=== PATIENT | male | born 1965 | race Caucasian/White ===

== ENCOUNTER 2019-04-05 14:38 | Inpatient (IN) | payer MEDICAID ==
[~2019-04-05] VITALS: Ht 185.4 cm; Wt 105.1 kg
[~2019-04-05 14:38] MED LIST: FLO0.4C PO; HYDR-4353 PO
[2019-04-05] MEDS ORDERED: magnesium hydroxide 30ml (MOM) UD suspension PO PRN (15:50)
[2019-04-05] MEDS ORDERED: LORazepam 1 MG tablet PO PRN (15:50)
[2019-04-05] MEDS ORDERED: NICOTINE POLACRILEX 2 MG LOZENGE BC PRN (15:50)
[2019-04-05] MEDS ORDERED: loperamide 2mg capsule PO PRN (15:50)
[2019-04-05] MEDS ORDERED: acetaminophen 325mg tablet PO PRN ×2 (15:50)
[2019-04-05] MEDS ORDERED: hydrOXYzine 25 MG tablet PO PRN (15:50)
[2019-04-05] MEDS ORDERED: mag hydrox/Alum hydrox/simeth 30ml oral suspension PO PRN (15:50)
[2019-04-05] MEDS ORDERED: NO HOME MEDS (15:54)
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
[2019-04-05 17:45] VITALS: BP 124/86
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
[2019-04-05 19:33] VITALS: BP 115/70
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
[2019-04-06] MEDS: nicotine 21mg patch - 24 hr TD SCH (07:55)
[2019-04-06 08:12] VITALS: BP 124/84
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
[2019-04-06 19:49] VITALS: BP 139/80
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
[2019-04-07 08:00] VITALS: BP 119/77
[2019-04-07] MEDS: nicotine 21mg patch - 24 hr TD SCH (08:00)
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
[2019-04-07 19:59] VITALS: BP 135/87
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
[2019-04-08 06:54] LABS: CHOL/HDL RATIO 2.9 (0.00-4.99); CHOLESTEROL 118 MG/DL (0-200); HDL CHOLESTEROL 41 MG/DL (35-60); LDL CHOLESTEROL 65 MG/DL (50-100); TRIGLYCERIDES 91 MG/DL (20-135)
[2019-04-08 08:00] VITALS: BP 125/71
[2019-04-08] MEDS: nicotine 21mg patch - 24 hr TD SCH (08:00)
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
[2019-04-08 20:00] VITALS: BP 127/82
[2019-04-08] MEDS: risperiDONE 0.5mg tablet PO SCH (20:49)
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
[2019-04-09] MEDS: risperiDONE 0.5mg tablet PO SCH ×2 (07:45→20:14)
[2019-04-09] MEDS: nicotine 21mg patch - 24 hr TD SCH (07:45)
[2019-04-09 08:00] VITALS: BP 114/75
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
--- NOTE | 2019-04-09 15:02 | NUR ---
DISCHARGE PLANNING Ct reported he plans on following up with [facility] upon discharge. Asked Lionel to run his insurance and it came up as [employer] but showed he may have [facility] benefits. Called [place] (ph# [phone]) and was informed Ct is [facility]he the [facility], is not assigned a provider, however, has seen a doctor in the past and is able to follow up with one. Asked to make Ct a follow up appt. Staff reported he will send a note to the "care team" regarding follow up. Staff suggested commercial lines underwriter call to follow up. Informed him that Ct will be discharging soon and will be in need of follow up care. Recreation Therapist will call back tomorrow. MICAELA Hussein
[2019-04-09 20:38] VITALS: BP 104/67
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
--- NOTE | 2019-04-10 07:50 | NUR ---
DISCHARGE PLANNING Left message for Jennifer from [place] (ph# [phone]) who had returned rewriter's call yesterday regarding a follow up appt for Ct. MICAELA Hussein
[2019-04-10 08:00] VITALS: BP 119/81
[2019-04-10] MEDS: nicotine 21mg patch - 24 hr TD SCH (08:00)
[2019-04-10] MEDS: risperiDONE 0.5mg tablet PO SCH (08:17)
--- NOTE | 2019-04-10 11:43 | NUR ---
Initial: Pt admitted for psychosis. Pt eating well, PO intake averaging 75-100% with a few refusals, meeting nutrient needs. [facility] 04/09. No nutrition diagnosis at this time. Will continue to monitor. Rec: 1. Continue regular diet 2. Bowel care as needed 3. Weekly weights Addendum: 04/10/19 at 1143 by Wing Peggy SHELL Amended: Links added. Addendum: 04/10/19 at [address] agree with director internal communications note
[2019-04-10] MEDS ORDERED: HYDR-3686 PO (14:33)
[2019-04-10] MEDS ORDERED: RISP0.5T3 PO (14:33)
[2019-04-10] MEDS ORDERED: NICO-687 TD (14:33)
--- NOTE | 2019-04-10 17:25 | NUR ---
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 Pt has been improving since admission and is in no acute physical or emotional distress. Pt in pleasantmood/ euthymic with good range of affect and dinies SI/HI. His valuables were inventoried and returned to him. Pt understands his discharge instructions and was given nicotine replacement.
== END 2019-04-10 17:10 | disposition home or self-care (01) | DRG 751 ==
LOC: ADULT MH 14:38
PROVIDERS: ADMIT Psychiatry & Neurology Psychiatry; ATTEND Psychiatry & Neurology Psychiatry
DX: F29 Unspecified psychosis not due to a substance or known physiological condition (principal); F10.10 Alcohol abuse, uncomplicated; F15.10 Other stimulant abuse, uncomplicated; F17.210 Nicotine dependence, cigarettes, uncomplicated
CPT/HCPCS: 36415; 80061; 83036; 87081; 99285